=== PATIENT | female | born 1950 | race Hispanic/Latino ===

== ENCOUNTER 2021-03-01 01:51 | Inpatient (IN) | payer MEDICARE ==
[2021-03-01] VITALS (45 sets, daily range): BP systolic 95–183; BP diastolic 41–119
[~2021-03-01] VITALS: Ht 167.6 cm; Wt 83.1 kg
[2021-03-01] MEDS ORDERED: CEFTRIAXONE 2GM VIAL IVP ONE (02:00)
[2021-03-01 02:08] LABS: BASOPHILS % (AUTO) 0.4 % (0.0-5.0); HEMATOCRIT 40.5 % (36-48); LYMPHOCYTES % (AUTO) 23.6 % (21.0-51.0); MEAN CORPUSCULAR HEMOGLOBIN 28.9 pg (27.0-33.0); MEAN CORPUSCULAR HGB CONC 32.3 g/dL (32.0-36.0); MEAN CORPUSCULAR VOLUME 89.4 fL (79-99); MONOCYTES % (AUTO) 9.7 % (3.0-13.0); NEUTROPHILS % (AUTO) 64.9 % (40.0-77.0); PLATELET COUNT (AUTO) 198 K/uL (130-400); RED BLOOD CELL COUNT(AUTO) 4.53 MIL/uL (4.00-5.50); WHITE BLOOD COUNT (AUTO) 10.4 K/uL (4.8-10.8)
[2021-03-01 02:15] LABS: APPEARANCE,URINE Turbid (CLEAR); BILIRUBIN,URINE Negative (NEGATIVE); COLOR,URINE Yellow (YELLOW); GLUCOSE, URINE (UA) 500 mg/dL (NEGATIVE); KETONES,URINE Negative (NEGATIVE); LEUKOCYTE ESTERASE ,URINE Large (NEGATIVE); NITRATE,URINE Negative (NEGATIVE); OCCULT BLOOD,URINE Moderate (NEGATIVE); PH,URINE 5.5 (5.0-8.0); PROTEIN,URINE POS 2+ mg/dL (NEGATIVE)
[2021-03-01 02:23] LABS: INR 0.96 (0.85-1.15); PROTHROMBIN TIME 10.5 SEC (9.6-11.6)
[2021-03-01 02:25] LABS: PARTIAL THROMBOPLASTIN TIME 27.1 SEC (26.3-35.5)
[2021-03-01 02:37] LABS: BACTERIA,URINE Many /HPF (None Seen); SQUAMOUS EPITHELIAL CELL,UR Few /HPF (0-2); WBC,URINE TNTC /HPF (0-1)
[2021-03-01 02:43] LABS: ALBUMIN 3.3 g/dL (3.5-5.0); BILIRUBIN,TOTAL 0.6 mg/dL (0.2-1.0); CREATININE 1.1 mg/dL (0.5-1.5); POTASSIUM 3.8 mmol/L (3.5-5.1); TOTAL PROTEIN, SERUM 7.6 g/dL (6.0-8.3)
[2021-03-01] MEDS ORDERED: MANNITOL 25% 50ML VIAL ONE (03:04)
[2021-03-01 03:20] LABS: ABG HCO3 27.6 mmol/L (21.0-28.0); ABG OXYGEN SATURATION 94.6 % (95.0-99.0); ABG PCO2 42 mmHg (32-45)
[2021-03-01] MEDS ORDERED: CEFTRIAXONE 1G VIAL ONE (03:23)
[2021-03-01] MEDS ORDERED: ONDANSETRON 4MG INJ IV PRN (07:00)
[2021-03-01] MEDS ORDERED: 0.9%NACL 1000ML 1,000 ML IV SCH (07:00)
[2021-03-01] MEDS ORDERED: INSU100I35 SQ ×2 (07:26)
[2021-03-01] MEDS ORDERED: AEC81 PO (07:26)
[2021-03-01] MEDS ORDERED: OMEG-148 PO (07:26)
[2021-03-01] MEDS ORDERED: CLOP75TA14 PO (07:26)
[2021-03-01] MEDS ORDERED: METO-391 PO (07:26)
[2021-03-01] MEDS ORDERED: MONT10TA32 PO (07:26)
[2021-03-01] MEDS ORDERED: FURO20TA4 PO (07:26)
[2021-03-01] MEDS ORDERED: SEMA1PEN3 SQ (07:26)
[2021-03-01] MEDS ORDERED: INSU3INS5 SQ (07:26)
[2021-03-01] MEDS ORDERED: MV-M1TAB39 PO (07:26)
[2021-03-01] MEDS ORDERED: INVOK100TB PO (07:26)
[2021-03-01 08:56] LABS: HEMATOCRIT 38.6 % (36-48); PLATELET COUNT (AUTO) 201 K/uL (130-400)
[2021-03-01] MEDS: FAMOTIDINE 20MG VIAL IV SCH ×2 (09:10→20:25)
[2021-03-01 09:29] LABS: PLATELET FUNCTION ANALYSIS EPI 152 SEC (55-192)
[2021-03-01] MEDS ORDERED: NICARDIPINE 25MG INJ 100 MG in 0.9%NACL 100ML 60 ML IV SCH (10:30)
[2021-03-01] MEDS: INSULIN LISPRO 100 UNIT/ML 3ML SQ SCH ×2 (12:00→17:26)
[2021-03-01] MEDS ORDERED: PHARMACY COMMUNICATION MISC SCH (14:00)
[2021-03-01] MEDS ORDERED: DEXAMETHASONE 10MG/ML 1ML VIAL 20 MG in 0.9%NACL 50ML 50 ML IV ONE (15:00)
[2021-03-01] MEDS ORDERED: LEVETIRACETAM 1,000 MG in 0.9%NACL 100ML 100 ML IV SCH (19:30)
[2021-03-01] MEDS ORDERED: DEXAMETHASONE SOD PHOSPHATE 4 MG/ML 1ML VIAL ONE (20:18)
[2021-03-01] MEDS: LEVETIRACETAM 1,000 MG in 0.9%NACL 100ML 100 ML IV SCH (20:25)
[2021-03-01] MEDS: DEXAMETHASONE SOD PHOSPHATE 10MG/ML 1ML VIAL IV SCH (20:25)
[2021-03-01] MEDS ORDERED: COMPOUND IV MISC 1 EACH IVSOLN MISC PRN (20:30)
[2021-03-02] VITALS (70 sets, daily range): BP systolic 88–190; BP diastolic 31–117
[2021-03-02] MEDS: INSULIN LISPRO 100 UNIT/ML 3ML SQ SCH ×4 (00:49→19:42)
[2021-03-02 05:11] LABS: EOSINOPHILS % (AUTO) 1.5 % (0.0-8.0); HEMATOCRIT 39.5 % (36-48); LYMPHOCYTES % (AUTO) 20.2 % (21.0-51.0); MEAN CORPUSCULAR HEMOGLOBIN 28.6 pg (27.0-33.0); MEAN CORPUSCULAR HGB CONC 32.4 g/dL (32.0-36.0); MEAN CORPUSCULAR VOLUME 88.2 fL (79-99); MONOCYTES % (AUTO) 1.4 % (3.0-13.0); NEUTROPHILS % (AUTO) 76.5 % (40.0-77.0); PLATELET COUNT (AUTO) 222 K/uL (130-400); RED BLOOD CELL COUNT(AUTO) 4.48 MIL/uL (4.00-5.50); RED CELL DISTRIBUTION WIDTH 14.6 % (11.0-15.5); WHITE BLOOD COUNT (AUTO) 8.6 K/uL (4.8-10.8)
[2021-03-02 05:34] LABS: ALBUMIN 3.2 g/dL (3.5-5.0); BILIRUBIN,TOTAL 0.4 mg/dL (0.2-1.0); CREATININE 1.2 mg/dL (0.5-1.5); POTASSIUM 3.8 mmol/L (3.5-5.1); TOTAL PROTEIN, SERUM 7.6 g/dL (6.0-8.3)
[2021-03-02] MEDS: LEVETIRACETAM 1,000 MG in 0.9%NACL 100ML 100 ML IV SCH ×3 (05:42→22:04)
[2021-03-02] MEDS: DEXAMETHASONE SOD PHOSPHATE 10MG/ML 1ML VIAL IV SCH ×3 (06:11→22:04)
[2021-03-02] MEDS: FAMOTIDINE 20MG VIAL IV SCH ×2 (09:55→22:04)
[2021-03-02] MEDS: CEFTRIAXONE 1G VIAL IVP SCH (09:55)
[2021-03-02] MEDS ORDERED: LABETALOL 20MG SYG IV ONE (20:29)
[2021-03-02] MEDS ORDERED: LABETALOL 20MG SYG IV PRN (23:30)
[2021-03-03] VITALS (73 sets, daily range): BP systolic 96–194; BP diastolic 36–111
[2021-03-03] MEDS: INSULIN LISPRO 100 UNIT/ML 3ML SQ SCH ×4 (01:13→18:03)
[2021-03-03 03:43] LABS: BASOPHILS % (AUTO) 0.1 % (0.0-5.0); HEMATOCRIT 36.6 % (36-48); LYMPHOCYTES % (AUTO) 9.4 % (21.0-51.0); MEAN CORPUSCULAR HEMOGLOBIN 28.5 pg (27.0-33.0); MEAN CORPUSCULAR VOLUME 89.1 fL (79-99); MONOCYTES % (AUTO) 2.6 % (3.0-13.0); NEUTROPHILS % (AUTO) 87.6 % (40.0-77.0); PLATELET COUNT (AUTO) 225 K/uL (130-400); RED BLOOD CELL COUNT(AUTO) 4.11 MIL/uL (4.00-5.50); RED CELL DISTRIBUTION WIDTH 14.9 % (11.0-15.5)
[2021-03-03 03:53] LABS: CREATININE 1.3 mg/dL (0.5-1.5); POTASSIUM 3.9 mmol/L (3.5-5.1)
[2021-03-03] MEDS: LEVETIRACETAM 1,000 MG in 0.9%NACL 100ML 100 ML IV SCH ×3 (05:39→21:39)
[2021-03-03] MEDS: DEXAMETHASONE SOD PHOSPHATE 10MG/ML 1ML VIAL IV SCH ×3 (05:39→22:00)
[2021-03-03] MEDS: FAMOTIDINE 20MG VIAL IV SCH ×2 (08:56→21:39)
[2021-03-03] MEDS: CEFTRIAXONE 1G VIAL IVP SCH (08:56)
[2021-03-03] MEDS: MEROPENEM 1 GM VIAL IVP SCH ×2 (09:35→21:42)
[2021-03-03] MEDS: LACTATED RINGERS 1000ML 1,000 ML IV SCH (10:22)
[2021-03-03] MEDS ORDERED: DEXAMETHASONE SOD PHOSPHATE 4 MG/ML 1ML VIAL ONE ×2 (14:03→22:14)
[2021-03-03] MEDS ORDERED: INSULIN GLARGINE 100 UNITS/ML 10 ML VIAL SQ SCH (21:00)
[2021-03-04] VITALS (11 sets, daily range): BP systolic 109–187; BP diastolic 55–132
[2021-03-04] MEDS: INSULIN LISPRO 100 UNIT/ML 3ML SQ SCH ×2 (00:02→06:41)
[2021-03-04] MEDS ORDERED: DEXAMETHASONE SOD PHOSPHATE 4 MG/ML 1ML VIAL ONE (04:48)
[2021-03-04] MEDS: LACTATED RINGERS 1000ML 1,000 ML IV SCH (05:39)
[2021-03-04] MEDS: DEXAMETHASONE SOD PHOSPHATE 10MG/ML 1ML VIAL IV SCH (05:40)
[2021-03-04] MEDS: LEVETIRACETAM 1,000 MG in 0.9%NACL 100ML 100 ML IV SCH (05:42)
[2021-03-04] MEDS: FAMOTIDINE 20MG VIAL IV SCH (09:00)
[2021-03-04] MEDS: MEROPENEM 1 GM VIAL IVP SCH (09:30)
== END 2021-03-04 12:54 | disposition short-term general hospital (02) | DRG 91 ==
LOC: EDH 01:51 → EDHIP 06:55 → 2CH 10:19
PROVIDERS: ADMIT Internal Medicine; ATTEND Internal Medicine
PROC: 5A09357 Assistance with Respiratory Ventilation, Less than 24 Consecutive Hours, Continuous Positive Airway Pressure (ICD-10-PCS; principal; 2021-03-02)
PROC: 5A09357 Assistance with Respiratory Ventilation, Less than 24 Consecutive Hours, Continuous Positive Airway Pressure (ICD-10-PCS; 2021-03-03)
DX: G96.08 Other cranial cerebrospinal fluid leak (principal); I62.03 Nontraumatic chronic subdural hemorrhage; G93.5 Compression of brain; N39.0 Urinary tract infection, site not specified; G81.94 Hemiplegia, unspecified affecting left nondominant side; G93.40 Encephalopathy, unspecified; Z16.12 Extended spectrum beta lactamase (ESBL) resistance; I12.9 Hypertensive chronic kidney disease with stage 1 through stage 4 chronic kidney disease, or unspecified chronic kidney disease; E11.22 Type 2 diabetes mellitus with diabetic chronic kidney disease; I25.10 Atherosclerotic heart disease of native coronary artery without angina pectoris; Z66 Do not resuscitate; E78.5 Hyperlipidemia, unspecified; N18.30 Chronic kidney disease, stage 3 unspecified; R32 Unspecified urinary incontinence; E66.9 Obesity, unspecified; Z68.30 Body mass index [BMI] 30.0-30.9, adult; B96.1 Klebsiella pneumoniae [K. pneumoniae] as the cause of diseases classified elsewhere; G93.2 Benign intracranial hypertension; I25.2 Old myocardial infarction; Z79.02 Long term (current) use of antithrombotics/antiplatelets; Z95.5 Presence of coronary angioplasty implant and graft
CPT/HCPCS: 36415; 36600; 70450; 71045; 80048; 80053; 81001; 82140; 82803; 82948; 83605; 83690; 83880; 84484; 85025; 85576; 85610; 85730; 86850; 86900; 86901; 87040; 87077; 87088; 87186; 93005; G0378; J0696; J1100; J1953; J2150; J2185; J2405; J3490; J7120